=== PATIENT | female | born 1985 | race African-American/Black ===

== ENCOUNTER 2021-07-10 19:13 | Emergency (ER) | payer SELFPAY ==
[2021-07-10] MEDS ORDERED: Albuterol Sulfate 2.5 mg/0.5 ml Neb ONE (20:05)
[2021-07-10 20:27] LABS: Hemoglobin 14.1 g/dL (12.0-16.0); Mean Corpuscular HGB CONC 33.3 g/dL (32.0-36.0); Mean Corpuscular Hemoglobin 28.9 pg (27.0-31.0); Mean Corpuscular Volume 86.9 fL (78.0-98.0); Mean Platelet Volume 7.5 fL (7.4-10.4); Platelet Count 283 thou/uL (130-400); RBC Distribution Width 13.5 % (11.5-14.5); Red Blood Cell (RBC) Count 4.87 mill/uL (4.20-5.40); White Blood Cell (WBC) Count 5.9 thou/uL (4.8-10.8)
[2021-07-10 20:30] LABS: ALT (SGPT) 24 U/L (8-55); AST (SGOT) 17 U/L (5-34); Albumin 3.8 g/dL (3.5-5.0); Alkaline Phosphatase 79 U/L (40-110); Anion Gap 13 mmol/L (10-20); BUN (Urea Nitrogen) 5 mg/dL (7.0-18.7); Bilirubin, Total 0.4 mg/dL (0.2-1.2); Calc. Creatinine Clearance 0 mL/min (70-130); Calcium 8.8 mg/dL (7.8-10.44); Carbon Dioxide 25 mmol/L (22-29); Chloride 106 mmol/L (98-107); Globulin 2.8 g/dL (2.4-3.5); Glucose 179 mg/dL (70-105); Potassium 3.3 mmol/L (3.5-5.1); Protein, Total 6.6 g/dL (6.0-8.3); Sodium 141 mmol/L (136-145)
[2021-07-10 20:56] LABS: Eosinophils 8 % (0-10); Lymphocytes 23 % (21-51); MDiff Complete? YES; Monocytes 6 % (0-10); Neutrophil 63 % (42-75); Platelet Morphology Comment Appears Adequate; RBC Morphology Normal
[2021-07-10] MEDS ORDERED: predniSONE 20 MG TAB ONE (20:59)
== END 2021-07-10 20:56 | disposition home or self-care (01) ==
LOC: BURERS 19:13
DX: R06.02 Shortness of breath (principal); E11.9 Type 2 diabetes mellitus without complications; I10 Essential (primary) hypertension; Z79.899 Other long term (current) drug therapy
CPT/HCPCS: 71045; 80053; 83880; 84484; 85025; 85379; 93005; J7512; J7611

== ENCOUNTER 2021-10-15 22:21 | Emergency (ER) | payer SELFPAY ==
[2021-10-15] MEDS ORDERED: Morphine 2 MG/ML VIAL ONE (22:35)
[2021-10-15] MEDS ORDERED: Morphine 4 MG/ML VIAL ONE (22:36)
== END 2021-10-15 23:37 | disposition home or self-care (01) ==
LOC: BURERS 22:21
DX: S83.91XA Sprain of unspecified site of right knee, initial encounter (principal); E11.9 Type 2 diabetes mellitus without complications; I10 Essential (primary) hypertension; X50.9XXA Other and unspecified overexertion or strenuous movements or postures, initial encounter
CPT/HCPCS: 96372; J2270

== ENCOUNTER 2023-08-14 03:08 | Emergency (ER) | payer SELFPAY | END 2023-08-14 04:16 | disposition left against medical advice (07) | LOC: BURERS 03:08 | DX: Z53.21 Procedure and treatment not carried out due to patient leaving prior to being seen by health care provider (principal) ==